=== PATIENT | male | born 1985 | race Caucasian/White ===

== ENCOUNTER 2020-05-21 13:01 | Outpatient (CLI) | payer OTHER | END 2020-05-21 13:02 | disposition home or self-care (01) | LOC: COV 13:01 | PROVIDERS: ATTEND Family Medicine | DX: R05 Cough (principal); M79.10 Myalgia, unspecified site; R53.83 Other fatigue; R09.81 Nasal congestion; Z20.828 Contact with and (suspected) exposure to other viral communicable diseases ==

== ENCOUNTER 2021-03-25 17:06 | Outpatient (CLI) | payer OTHER | END 2021-03-25 17:07 | disposition home or self-care (01) | LOC: COV 17:06 | PROVIDERS: ATTEND Family Medicine | DX: R05 Cough (principal); M79.10 Myalgia, unspecified site; R53.83 Other fatigue; R68.83 Chills (without fever); R07.0 Pain in throat; R09.81 Nasal congestion; Z20.822 Contact with and (suspected) exposure to COVID-19 ==